=== PATIENT | female | born 1965 | race Caucasian/White ===

== ENCOUNTER → 2016-11-02 | Outpatient (CLI) | payer BC ==
--- NOTE | 2016-11-02 09:32 | RAD ---
Bilateral knees, 11/02/2016: History: Left knee pain AP and PA standing views of both knees, tangential patellar views of both knees and a lateral view of the left knee were obtained as requested. There is severe narrowing of the medial compartment of the left knee joint with moderate marginal spurring. There is moderate spurring at the left patellofemoral articulation. No fracture or dislocation is identified. There is only mild narrowing of the medial compartment of the right knee joint. There is mild marginal spurring and patellofemoral spurring on the right. No fracture is identified. IMPRESSION: 1. Moderate degenerative change at the left knee with dominant involvement of the medial compartment. 2. Mild degenerative change at the right knee.
== END | disposition home or self-care (01) ==
LOC: DXRAD 08:09
PROVIDERS: ATTEND Orthopaedic Surgery
DX: M17.0 Bilateral primary osteoarthritis of knee (principal)
CPT/HCPCS: 73564

== ENCOUNTER → 2017-07-10 | Outpatient (CLI) | payer BC ==
--- NOTE | 2017-07-10 15:40 | RAD ---
3 views right foot 07/10/2017 2:00 AM Indication: PAIN IN FOOT Comparison: None Findings: There is no fracture or dislocation identified. Articular surfaces are uninterrupted. Spurring at the insertion of the plantar fascia the calcaneus noted. Soft tissues are unremarkable. Impression: No evidence of acute osseous abnormality
== END | disposition home or self-care (01) ==
LOC: PMG 14:51
PROVIDERS: ATTEND Physician Assistant Medical
DX: M79.671 Pain in right foot (principal)
CPT/HCPCS: 73630

== ENCOUNTER → 2019-07-07 | Outpatient (CLI) | payer BC ==
--- NOTE | 2019-07-07 09:35 | RAD ---
EXAM: Left knee, 2 views. HISTORY: Pain. COMPARISON: 11/02/2016 FINDINGS: 2 views of the left knee are obtained. There is severe medial compartment joint space narrowing. There is medial compartment subchondral sclerosis. There is tricompartmental spurring. No joint effusion is seen. IMPRESSION: 1. Severe medial and mild lateral and patellofemoral compartment osteoarthritis of the left knee. 2. No acute osseous finding. Electronically signed by: Pamela Tam MD (07/07/2019 9:32 AM) [id number]
== END ==
LOC: RAD 08:59
PROVIDERS: ATTEND Physician Assistant Medical
DX: M17.12 Unilateral primary osteoarthritis, left knee (principal)
CPT/HCPCS: 73560

== ENCOUNTER → 2021-01-03 | Outpatient (CLI) | payer BC ==
--- NOTE | 2021-01-03 14:09 | RAD ---
EXAM: Right knee, 3 views. HISTORY: Pain. COMPARISON: None. FINDINGS: 3 views of the right knee are obtained. There is moderate medial compartment joint space na rrowing and spurring. There is mild lateral and patellofemoral compartment spurring. There is small j oint effusion. IMPRESSION: Moderate medial compartment and mild lateral and patellofemoral compartment osteoarthriti s of the right knee with small joint effusion. Electronically signed by: Pamela Tam MD (01/03/2021 2:07 PM) [id number]
== END ==
LOC: RAD 13:46
PROVIDERS: ATTEND Physician Assistant
DX: M17.11 Unilateral primary osteoarthritis, right knee (principal); M25.461 Effusion, right knee
CPT/HCPCS: 73562